=== PATIENT | female | born 1970 | race Caucasian/White ===

== ENCOUNTER 2025-02-20 13:24 | Outpatient (OUT) | payer MEDICARE, MEDICAID, SELFPAY ==
--- OUTSIDE RECORDS SUMMARY | 2024-04-13 09:30 | XMS_ITS ---
Author Organization [facility] Address [address] [place] [id number] Care Team Providers Care Passenger Agent Name Role Phone Delores España Unavailable [phone] REASON FOR VISIT Recall (A) (54) Social History Sex Assigned At : Social History Observation Description Sex Assigned At Female Encounters Encounter Location Date Provider Diagnosis [facility] [address] [place] [phone] 04/13/2024 Delores España Plan Of Treatment No Information Progress Notes * Liz DONIS MDOB:[birth year] (54 yo F)Acc No.[id number]:04/13/2024 Patient: Neda VASQUEZhy Thomas Provider: Genny España DDS :1970 A ge:53 Y S ex:Female Date:04/13/2024 Address:[address] [place], [place] [id number] Subjective: * Chief Complaints: * 1 . Recall (A) (54). * Medical History: Objective: * Vitals: Assessment: Plan: * Treatment: * Billing Information: * Visit Code: * Procedure Codes: * Electronic signature of Dionicio España DDS on 02/20/2025 at 01:26 PM EDT Sign off status: Pending * Provider: Genny España DDS Date: 04/13/2024 Generated for Viniciusi desiree/Lanette/eTransmitting on: 02/20/2025 01:26 PM EDT
--- OUTSIDE RECORDS SUMMARY | 2025-02-20 13:26 | XMS_ITS | Clinical Summary ---
Author Organization [employer] [facility] Address [id number] [address] [place] [address] Care Team Providers Care Dispatcher Chief Coal Slurry Name Role Phone CoyneIsisDahlia Ross DO Primary Care Provider Allergies No known active allergies Medications loratadine (CLARITIN) 10 mg tablet Take 10 mg by mouth daily. Active acidophilus-pec tin, citrus 100 million cell-10 mg capsule Take by mouth 3 (three) times a day with meals. Active atorvastatin (LIPITOR) 10 mg tablet Take 10 mg by mouth daily. Active xpzrqgzq-hiiv-S A-calcium &mins (THERAGRAN-M) 9 mg iron-400 mcg tablet Take 1 tablet by mouth daily. Active ethosuximide (ZARONTIN) 250 mg capsule Take 500 mg by mouth 2 (two) times a day. Active omega-3 fatty acids-fish oil (FISH OIL) 300-1,000 mg capsule Take 2 g by mouth daily. Active metFORMIN (GLUCOPHAGE) 500 mg tablet Take 500 mg by mouth 2 (two) times a day with meals. Active betamethasone valerate (VALISONE) 0.1 % cream Apply 1 application topically daily. Active doxycycline (VIBRAMYCIN) 100 mg capsule Take 1 capsule (100 mg total) by mouth 2 (two) times a day. 20 capsule 9 Active Social History Tobacco Use Types Packs/Day Years Used Date Smoking Tobacco: Never Smokeless Tobacco: Never Alcohol Use Standard Drinks/Week Comments Never 0 (1 standard drink = 0.6 oz pur e alcohol) AUDIT-C Answer Date Recorded Frequency of Alcohol Consumption Never 06/12/2019 Average Number of Drinks Not on file 019 Frequency of Binge Drinking Not on file 12/2018 Childcare Answer Date Recorded Childcare Unknown 01/17/2019 Employment Answer Date Recorded Employment Unknown 01/17/2019 Purpose - Life Answer Date Recorded Purpose and direction in life Unknown Comments Unknown Sex and Gender Information Value Date Recorded Sex Assigned at Not on file Legal Sex Female 11:27 AM EDT Gender Identity Not on file Sexual Orientation Not on file Last Filed Vital Signs Vital Sign Reading Time Taken Comments Blood Pressure 98/70 06/12/2019 5:26 PM EST Pulse 78 06/12/2019 5:26 PM EST Temperature 36.8 C (98.3 F) 06/12/2019 5:26 PM EST Respiratory Rate 20 06/12/2019 5:26 PM EST Oxygen Saturation 100% 06/12/2019 5:26 PM EST Inhaled Oxygen Concentration - - Weight 90.7 kg (200 lb) 06/12/2019 5:26 PM EST Height 165.1 cm (5' 5 ) 06/12/2019 5:26 PM EST Body Mass Index 33.28 06/12/2019 5:26 PM EST Plan of Treatment Health Maintenance Due Date Last Done Comments Depression Screening 1981 Tobacco Screening 1981 Adult BMI Screening 1987 DTaP,Tdap and Td Vaccines (1 - Tdap) 1988 Pap Smear 1990 Zoster (Shingles) Vaccine (1 of 2) 2019 COVID-19 Vaccine (5 - 2023-2 5 season) 2024 04/29/2022, 06/25/2021, 09/15/2020, Additional history exists Influenza Vaccine 04/08/2025 07/21/2023, , 06/25/2021, Additional history exists Medical Devices Not on file Insurance MEDICARE MEDICAID [place] Care Teams Dispatcher Chief Coal Slurry Relationship Specialty Start Date End Date Dahlia Sanchez DO PCP - General Internal Medicine 06/12/19
--- OUTSIDE RECORDS SUMMARY | 2025-02-20 13:26 | XMS_ITS | Encounter Summary ---
Author Organization [facility] Address [address] [place] [address] [place] [address] Care Team Providers Care Frame Maker Name Role Phone StanfordIsisDahlia Ross DO Primary Care Provider Dahlia Sanchez DO Unavailable [phone] Encounter Details Date Type Department Care Team (Late Contact Info) Description 05/07/2024 Orders Only [facility] [address] [place] [phone] A, Unknown Practice [address] [place], [place] [phone] Social History Tobacco Use Types Packs/Day Years Used Date Smoking Tobacco: Never Smokeless Tobacco: Never Alcohol Use Standard Drinks/Week Comments Never 0 (1 standard drink = 0.6 oz pure alcohol) caffeine intake: 1-2 cups per day, one can of diet soda a day AUDIT-C Answer Date Recorded Q1: How often do you have a drink containing alc ohol? Never 01/18/2023 Average Number of Drinks Not on file 023 Frequency of Binge Drinking Not on file 01/06 Comments Unknown Sex and Gender Information Value Date Recorded Sex Assigned at Not on file Legal Sex Female 6:44 PM EDT Gender Identity Not on file Sexual Orientation Not on file documented as of this encounter Plan of Treatment Upcoming Encounters Date Type Department Care Team (Late Contact Info) Description 05/08/2025 4:00 PM EDT Procedure [facility] [address] [facility] [place] [address] Martin Nair, CASE [address] [place], [place] [phone] 08/06/2025 9:30 AM EST Office Visit [facility] [address] [place] [phone] Dahlia Sanchez, [address] [place] [address] documented as of this encounter Procedures Procedure Name Priority Date/Time Associated Diagnosis Comments DIABETIC RETINOPATHY SCREENING - OU - BOTH EYES Routine 02/05/2021 3:54 PM EDT DIABETIC RETINOPATHY SCREENING - OU - BOTH EYES Routine 08/10/2017 3:55 PM EST documented in this encounter Results * Diabetic Retinopathy Screening - OU - Both Eyes (02/05/2021 3:54 PM EDT) Anatomical Region Laterality Modality Head Other us Unknown Practice A OPHTH PHOTOGRAPHY Final Resul t * Diabetic Retinopathy Screening - OU - Both Eyes (08/10/2017 3:55 PM EST) Anatomical Region Laterality Modality Head Other us Unknown Practice A OPHTH PHOTOGRAPHY Final Resul t documented in this encounter Visit Diagnoses Not on filedocumented in this encounter Care Teams Frame Maker Relationship Specialty Start Date End Date Dahlia Sanchez DO [address] [place] [address] PCP - General Internal Medicine 01/18/23 Dahlia Sanchez DO [address] [place] [address] PCP - ACO Reach 10/07/23 Dr. Nair Referring Physician Podiatry 07/21/23 Dental [facility] in [place] Referring Physician Dentist 07/21/23 documented as of this encounter
--- OUTSIDE RECORDS SUMMARY | 2025-02-20 13:26 | XMS_ITS | Patient Health Record ---
Author Organization [facility] Address [address] [place] [phone] Care Team Providers Care Liner Worker Name Role Phone Delores España Unavailable [phone] Allergies No Known Allergies Reason For Referral No Information Medications Medication SIG (Take, Route, Frequency, Duration) Notes Start Date End Date Status Ethosuximide 250 MG Oral for 30 Days Active Acidophilus 04/01/2022 Active Atorvastatin Calcium 10 MG Oral for 30 Days Active Social History Sex Assigned At : Social History Observation Description Sex Assigned At Female Vital Signs Heart Rate 64 /min 05/28/2024 Blood pressure diastolic 77 mm Hg 05/28/2024 Weight-kg 49.9 kg 05/28/2024 Height 60.5 in 05/28/2024 Blood pressure systolic 99 mm Hg 05/28/2024 Weight 110 lbs 05/28/2024 BMI 21.13 kg/m2 05/28/2024 Encounters Encounter Location Date Provider Diagnosis [facility] [address] [place], [place] [phone] 05/28/2024 Delores España Encounter for dent al examination and cleaning without abnormal findings Z01.20 ; Encounter for dental examination and cleaning with abnormal findings Z01.21 and Encounter for screening for dental disorders Z13.84 Assessments Encounter Date Diagnosis (ICD Code) Assessment Notes Treatment Notes Treatment Clinical Notes Section Notes 05/28/2024 Encounter for dental examination and cleaning without abnormal findings (ICD-10 - Z01.20) 05/28/2024 Encounter for dental examination and cleaning with abnormal findings (ICD-10 - Z01.21) 05/28/2024 Encounter for screening for dental disorders (ICD-10 - Z13.84) Plan Of Treatment No Information Insurance Providers Payer Name Payer Address Payer Phone Subscriber Number Group Number Insured Name Patient Relationship to Insured Coverage Start Date Coverage End Date DMedicaid [address] [place], [place] [id number] Liz Cheng Self - patient is the insured 2
--- OUTSIDE RECORDS SUMMARY | 2025-02-20 13:26 | XMS_ITS | Encounter Summary ---
Author Organization [facility] Address [address] [place] [address] Care Team Providers Care Wind Farm Electrical Systems Designer Name Role Phone Coyne-Dahlia Ross DO Primary Care Provider Dahlia Sanchez DO Unavailable [phone] Encounter Details Date Type Department Care Team (Late Contact Info) Description 04/15/2023 Abstract [facility] [address] [place] [phone] Martin Nair, DPThomas [address] [place], [place] [phone] Social History Tobacco Use Types Packs/Day Years [...] Upcoming Encounters Date Type Department Care Team ([facility] Contact Info) Description 05/08/2025 4:00 PM EDT Procedure Visit [facility] [address] [place] [phone] Martin Nair, DPThomas [address] [place] [address] 08/06/2025 9:30 AM EST Office Visit [facility] [address] [place] [phone] Dahlia Sanchez, DO [address] [place] [address] documented as of this encounter Visit Diagnoses Not on filedocumented in this encounter Care Teams Wind Farm Electrical Systems Designer Relationship Specialty Start Date End Date Dahlia Sanchez, DO [address] [place] [address] PCP - General Internal Medicine 01/18/23 Dahlia Sanchez, DO [address] [place] [address] PCP - ACO Reach 10/07/23 Dr. Nair Referring Physician Podiatry 07/21/23 Dental Main in [place] Referring Physician Dentist 07/21/23 documented as of this encounter
--- OUTSIDE RECORDS SUMMARY | 2025-02-20 13:26 | XMS_ITS | Encounter Summary ---
Author Organization [facility] Address [address] [place] [address] Care Team Providers Care Packager Or Packer And Weigher Name Role Phone Coyne-Dahlia Ross DO Primary Care Provider Dahlia Sanchez DO Unavailable [phone] Encounter Details Date Type Department Care Team ([facility] Contact Info) Description 08/24/2024 Orders Only [facility] [address] [place] [phone] Derek Dai MD [address] [place] [address] Social History Tobacco Use Types Packs/Day Years [...] of Binge Drinking Not on file 01/06 PHQ-2 Answer Date Recorded Patient Health Questionnaire-2 Score 0 07/25/2024 Comments Unknown Sex and Gender Information Value Date Recorded Sex Assigned at Not on file Legal Sex Female 6:44 PM EDT Gender Identity Not on file Sexual Orientation Not on file documented as of this encounter Plan of Treatment Upcoming Encounters Date Type Department Care Team ([facility] st Contact Info) Description 05/08/2025 4:00 PM EDT Procedure Visit [facility] [address] [place] [phone] Martin Nair, DPM [address] [place] [address] 08/06/2025 9:30 AM EST Office Visit [facility] [address] [place] [address] Dahlia Sanchez, DO [address] [place] [address] documented as of this encounter Procedures Procedure Name Priority Date/Time Associated Diagnosis Comments DIABETIC RETINOPATHY SCREENING - OU - BOTH EYES Routine 03/27/2024 9:46 AM EDT documented in this encounter Results * Diabetic Retinopathy Screening - OU - Both Eyes (03/27/2024 9:46 AM EDT) Anatomical Region Laterality Modality Head Other us Derek Dai MD OPHTH PHOTOGRAPHY Final Result documented in this encounter Visit Diagnoses Not on filedocumented in this encounter Care Teams Packager Or Packer And Weigher Relationship Specialty Start Date End Date Dahlia Sanchez DO [address] [place] [address] PCP - General Internal Medicine 01/18/23 Dahlia Sanchez DO [address] [place] [address] PCP - ACO Reach 10/07/23 Dr. Nair Referring Physician Podiatry 07/21/23 Dental Main in [place] Referring Physician Dentist 07/21/23 documented as of this encounter
--- NOTE | 2025-02-20 13:29 | MM_ITS ---
Patient Name: IOANA DONIS MR#: [id number] : 1970 Exam Date: 02/20/2025 Ordering Doctor: ANGEL[facility]NSON [facility] REPORT PROCEDURE: MM SCREENING MAMMO BI COMPARISON: MM TOMOSYNTHESIS SCREENING BI, 11/08/2023. MM SCREENING MAMMO BI, 02/02/2022. INDICATIONS: Screening Calculator Name NCI Breast Cancer Risk Assessment Tool 5 Year Breast Cancer Risk Not Reported. Lifetime Breast Cancer Risk Not Reported. Personal Breast Cancer No Personal Ovarian Cancer No Treatments None Family Cancers None LOCATION: [facility] BREAST COMPOSITION: The breasts are heterogeneously dense, which may obscure small masses. FINDINGS: RIGHT BREAST: No significant suspicious finding. LEFT BREAST: No significant suspicious finding. DIAGNOSTIC CATEGORY 1--NEGATIVE. RECOMMENDATIONS: ROUTINE MAMMOGRAM AND CLINICAL EVALUATION IN 12 MONTHS. PLEASE NOTE: Dictated by: Breezy Mercado DO on 02/21/2025 at 09:46 Approved by: Breezy Mercado DO on 02/21/2025 at 10:07
== END 2025-02-20 13:25 | disposition home or self-care (01) ==
LOC: MAMMO 13:24
PROVIDERS: PCP Internal Medicine; Visit Provider Internal Medicine
DX: Z12.31 Encounter for screening mammogram for malignant neoplasm of breast (principal)
CPT/HCPCS: 77067